=== PATIENT | male | born 1970 | race Caucasian/White ===

== ENCOUNTER 2017-01-02 14:27 | Emergency (ER) | payer SELFPAY ==
[2017-01-02] MEDS ORDERED: oxyCODONE HCL/ACETAMINOPHEN 1 TAB TABLET PO ONE (15:30)
[2017-01-02] MEDS ORDERED: KETOROLAC TROMETHAMINE 30 MG/ML VIAL IV ONE (15:44)
[2017-01-02] MEDS ORDERED: DIPHTH,PERTUSS(ACELL),TET VAC 0.5 ML VIAL IM ONE ×2 (15:46→15:54)
[2017-01-02] MEDS ORDERED: oxyCODONE HCL/ACETAMINOPHEN 1 TAB TABLET ONE (15:53)
[2017-01-02] MEDS ORDERED: KETOROLAC TROMETHAMINE 30 MG/ML VIAL ONE (15:53)
[2017-01-02 16:01] VITALS: BP 134/102
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
== END 2017-01-02 16:23 | disposition home or self-care (01) ==
LOC: ER 14:27
PROC: 2W3SX1Z Immobilization of Right Foot using Splint (ICD-10-PCS; principal; 2017-01-02)
DX: G57.41 Lesion of medial popliteal nerve, right lower limb (principal); S90.31XA Contusion of right foot, initial encounter; F17.210 Nicotine dependence, cigarettes, uncomplicated; W50.0XXA Accidental hit or strike by another person, initial encounter; Y92.59 Other trade areas as the place of occurrence of the external cause; Y99.0 Civilian activity done for income or pay; Z23 Encounter for immunization